=== PATIENT | female | born 1980 | race Caucasian/White ===

== ENCOUNTER 2021-10-20 21:57 | Emergency (ER) | payer OTHER, SELFPAY ==
--- NOTE | ~2021-10-20 | CT_ITS ---
EXAMINATION: CT ABDOMEN AND PELVIS WITHOUT CONTRAST CLINICAL INFORMATION: Left lower quadrant pain, question diverticulitis COMPARISON: None TECHNIQUE: Multidetector volumetric imaging was performed from the superior aspect of the liver through the pubic symphysis. Sagittal and coronal reformatted images were obtained on the technologist's workstation. This CT examination was performed using dose optimization techniques as appropriate, variously including the following: *Automated exposure control *Adjustment of mA and/or kV according to patient size (this includes techniques or standardized protocols for targeted exams where dose is matched to indication/reason for exam; i.e. extremities or head) *Use of iterative reconstruction technique DLP: 791 mGy-cm FINDINGS: LUNG BASES: The visualized lung bases are unremarkable. LIVER, GALLBLADDER, AND BILIARY TREE: The liver demonstrates hypoattenuation suspicious for steatosis. No focal hepatic lesion or biliary ductal dilatation is present. Gallbladder appears somewhat contracted. PANCREAS: Unremarkable. SPLEEN: Unremarkable. ADRENAL GLANDS: Unremarkable. KIDNEYS AND URETERS: The kidneys are normal in size, shape, and attenuation. No hydronephrosis, hydroureter, or calculi seen. No perinephric stranding. BLADDER: Minimally distended and grossly unremarkable. GASTROINTESTINAL TRACT: No evidence of bowel obstruction or significant wall thickening. The appendix is unremarkable. No free fluid or free air is seen. ABDOMINAL WALL: No significant hernia is appreciated. LYMPH NODES: Scattered mesenteric and retroperitoneal subcentimeter lymph nodes are present, without significant enlargement by size criteria. VASCULAR: Unremarkable. PELVIC VISCERA: The uterus is enlarged, suspicious for at least one prominent fibroid measuring approximately 10 cm in the central to left uterus. OSSEOUS STRUCTURES: Scattered endplate osteophytes are present in the spine. CT/CT abdomen pelvis wo con IMPRESSION: 1. Enlarged uterus, most suspicious for underlying fibroid estimated to measure approximately 10 cm. This may be more fully assessed with pelvic MRI. 2. Hepatic steatosis. 3. No evidence of diverticulitis.
[2021-10-20 23:12] VITALS: BP 182/83; PULSE 87; RESP 16; TEMP 36.7; O2SAT 96; BMI 35.7
[2021-10-21 00:25] LABS: MANUAL DIFF FLAG NO
[2021-10-21 00:26] LABS: Basophils Percent Auto 0.4 % (0-2); Eosinophils Absolute Auto 0.4 X10*3/uL (0.0-0.4); Eosinophils Percent Auto 4.5 % (0-4); Hematocrit 42.5 % (37.0-47.0); Hemoglobin 13.9 g/dl (12.0-16.0); Imm Gran Abs Auto 0.07 X10*3/uL (0.00-0.03); Imm Gran Pct Auto 0.7 % (0.0-0.4); Lymphocytes Absolute Auto 2.7 X10*3/uL (1.2-4.9); Lymphocytes Percent Auto 28.3 % (20-40); Mean Corpuscular HGB Conc 32.7 g/dl (31.0-35.0); Mean Corpuscular Volume 91.6 fL (80.0-98.0); Mean Platelet Volume 10.4 fL (9.4-12.3); Monocytes Absolute Auto 0.6 X10*3/uL (0.1-1.2); Neutrophils Absolute Auto 5.8 x10*3/uL (2.0-8.3); Neutrophils Percent Auto 60.1 % (45-73); Platelet Count 279 X10*3/uL (160-400); Red Blood Count 4.64 X10*6/uL (4.20-5.50); Red Cell Distribution Width 13.6 % (11.0-16.0); White Blood Count 9.6 X10*3/uL (4.8-10.8)
[2021-10-21 00:44] LABS: Alanine Aminotransferase 56 U/L (0-31); Albumin Level 4.6 g/dL (3.5-5.0); Alkaline Phosphatase 95 U/L (39-117); Anion Gap 14 (12-20); Aspartate Amino Transferase 30 U/L (5-31); Bilirubin Direct < 0.2 mg/dL (0.0-0.5); Bilirubin Total 0.2 mg/dL (0.0-1.0); Blood Urea Nitrogen 14 mg/dL (9-16); Calcium 9.7 mg/dL (8.4-10.2); Carbon Dioxide 23 mmol/L (22-29); Chloride 105 mmol/L (96-108); Creatinine Clr Calc Pharmacy 106.4; Estimated Glomerular Filt Rate > 60; Glucose Random 160 mg/dL (60-115); Lipase 21 U/L (8-78); Potassium 3.9 mmol/L (3.3-5.1); Sodium 138 mmol/L (135-145); Total Protein 7.3 g/dL (6.5-8.0)
--- NOTE | 2021-10-21 00:56 | ED_ITS ---
HPI - GI Bleed General Chief complaint: GI Bleed Stated complaint: rectal bleeding Time Seen by Provider: 10/21/21 00:55 Source: patient Mode of arrival: ambulatory Limitations: no limitations History of Present Illness HPI Narrative: Patient has significant abdominal complaints in the past noticed bright red blood in the stool since today evening had some discomfort since yesterday in left lower abdomen no nausea no vomiting no fever. Patient not constipated. When she moves bowel has some drops of blood in the commode and had streaks of blood on the stool no fever no chills Related Data Previous Rx's Medication Instructions Recorded hydrocortisone acetate 25 mg 25 mg [place] BID #12 ea 10/21/21 rectal suppository (Anusol-HC) Allergies Allergy/AdvReac Type Severity Reaction Status Date / Time morphine Allergy Severe Anaphylaxis Verified 10/20/21 23:12 Review of Systems Review of Systems: Yes all other systems are reviewed and are negative [facility] Social History Social History Advance Directives: No Physical Exam Vital Signs: Vital Signs: Last Vital Signs Temp 98.1 F 10/20/21 23:12 Pulse 87 10/20/21 23:12 Resp 16 10/20/21 23:12 BP 182/83 H 10/20/21 23:12 Pulse Ox 96 10/20/21 23:12 O2 Del Method 10/20/21 23:12 BMI result Body Mass Index 35.7 Appearance: Alert. Oriented X3. No acute distress. Eyes: PERRLA, No Nystagmus ENT: Pharynx normal. Oral Mucosa moist Neck: Normal inspection. Neck supple. CVS: Normal heart rate and rhythm. Pulses normal. Respiratory: No respiratory distress. Equal air entry bilateral, no wheez ing/rales/rhonchi Abdomen: Soft , mild deep tenderness left lower quadrant no rebound tenderness or guarding Bowel sounds are present, no mass palpable, no CVA tenderness rectal; no hemorrhoid felt no stool on the finger no blood Skin: Skin warm and dry. Normal skin color. Normal skin turgor. Extremities: No lower extremity edema. No calf tenderness Neuro: Oriented X 3. No motor deficit. MDM - GI Bleed MDM Narrative Medical decision making narrative: 0145 Patient with minor rectal bleed rectal exam negative no blood was seen on the finger H&H stable vital stable. Will get CT scan of the abdomen to rule out diverticulitis. Lab Data Attestation: I reviewed the patient's lab results. Result diagrams: 10/21/21 00:20 10/21/21 00:20 Labs: Lab Results 10/21/21 10/21/21 10/21/21 Range/Units 00:20 00:20 01:18 WBC 9.6 (4.8-10.8) X10*3/uL RBC 4.64 (4.20-5.50) X10*6/uL Hgb 13.9 (12.0-16.0) g/dl Hct 42.5 (37.0-47.0) % MCV 91.6 (80.0-98.0) fL MCH 30.0 (27.0-33.0) pg MCHC 32.7 (31.0-35.0) g/dl RDW 13.6 (11.0-16.0) % Plt Count 279 (160-400) X10*3/uL MPV 10.4 (9.4-12.3) fL Immature Gran % (Auto) 0.7 H (0.0-0.4) % Neut % (Auto) 60.1 (45-73) % Lymph % (Auto) 28.3 (20-40) % [place] % (Auto) 6.0 (2-11) % Eos % (Auto) 4.5 H (0-4) % Baso % (Auto) 0.4 (0-2) % Lymph # (Auto) 2.7 (1.2-4.9) X10*3/uL [place] # (Auto) 0.6 (0.1-1.2) X10*3/uL Eos # (Auto) 0.4 (0.0-0.4) X10*3/uL Baso # (Auto) 0.0 (0.0-0.2) X10*3/uL Abs Immat Gran (auto) 0.07 H (0.00-0.03) X10*3/uL Absolute Neuts (auto) 5.8 (2.0-8.3) x10*3/uL Absolute Nucleated RBC 0.000 (0.0-0.012) X10*3/uL Nucleated RBC % (auto) 0.0 (0.0-0.2) /100WBC Sodium 138 (135-145) mmol/L Potassium 3.9 (3.3-5.1) mmol/L Chloride 105 (96-108) mmol/L Carbon Dioxide 23 (22-29) mmol/L Anion Gap 14 (12-20) BUN 14 (9-16) mg/dL Creatinine 0.82 (0.5-1.4) mg/dL Estim Creat Clear Calc 106.4 Estimated GFR > 60 Random Glucose 160 H (60-115) mg/dL Calcium 9.7 (8.4-10.2) mg/dL Total Bilirubin 0.2 (0.0-1.0) mg/dL Direct Bilirubin < 0.2 (0.0-0.5) mg/dL AST 30 (5-31) U/L ALT 56 H (0-31) U/L Alkaline Phosphatase 95 (39-117) U/L Total Protein 7.3 (6.5-8.0) g/dL Albumin 4.6 (3.5-5.0) g/dL Lipase 21 (8-78) U/L Urine Color YELLOW Urine Appearance CLEAR Urine pH 6.0 (5.0-8.0) Ur Specific [place] >= 1.030 H (1.005-1.025) Urine Protein NEG (NEG-TRACE) MG/DL Urine Glucose (UA) NEG (NEG) MG/DL Urine Ketones NEG (NEG) MG/DL Urine Blood NEG (NEG) Urine Nitrite NEG (NEG) Ur Leukocyte Esterase NEG (NEG) Discharge Plan Discharge Clinical Impression: Rectal bleed Patient Disposition: Still a Patient Instructions: Rectal Bleeding (ED) Additional Instructions: Etiology of rectal bleeding is not very clear likely have internal hemorrhoids Use and is also positive for now, avoid straining or constipation Follow-up with darkroom worker for further workup including colonoscopy Report to the ER if worsening of rectal bleeding Prescriptions: New hydrocortisone acetate [Anusol-HC] 25 mg suppository 25 mg WA BID Qty: 12 0RF
[2021-10-21 01:26] LABS: Appearance Urine CLEAR; Color Urine YELLOW; Glucose Urine UA NEG (NEG); Leukocyte Esterase Urine NEG (NEG); Nitrite Urine NEG (NEG); Specific Gravity - Urine >= 1.030 (1.005-1.025); Urine Blood NEG (NEG); Urine Ketones NEG (NEG); Urine Protein NEG (NEG-TRACE)
[2021-10-21 03:00] VITALS: BP 114/61; PULSE 78; RESP 18; O2SAT 99
== END 2021-10-21 04:49 | disposition home or self-care (01) ==
PROVIDERS: Emergency Provider Internal Medicine
DX: K92.2 Gastrointestinal hemorrhage, unspecified (principal); Z79.899 Other long term (current) drug therapy
CPT/HCPCS: 36415; 74176; 80048; 80076; 81003; 83690; 85025; 99284

== ENCOUNTER 2023-01-13 20:35 | Emergency (ER) | payer OTHER, SELFPAY ==
--- NOTE | ~2023-01-13 | CT_ITS ---
EXAMINATION: CT ANGIOGRAM HEAD CT ANGIOGRAM NECK CLINICAL INFORMATION: Reason for Exam L eye blurry vision, AKERS, facial LUE numbness 1hr COMPARISON: None. TECHNIQUE: Test bolus sequences followed by intravenous administration 70 mL of Omnipaque 350. Helical imaging was performed in the axial plane from the aortic arch to the skull vertex. Delayed postcontrast imaging of the head was also performed. The data was processed at the clinical laboratory technologist's workstation for generation of MIP sequences. Angled MIPs and volume rendered reformatted images were also generated at an offline 3D workstation. Stenoses are assessed in accordance with Yang et al. Quantification of Carotid Stenosis on CT Angiography. AJR 2006. 27(1):13-19. [address] CT examination was performed using dose optimization techniques as appropriate, variously including the following: *Automated exposure control *Adjustment of mA and/or kV according to patient size (this includes techniques or standardized protocols for targeted exams where dose is matched to indication/reason for exam; i.e. extremities or head) *Use of iterative reconstruction technique DLP: 1533.76 mGy-cm FINDINGS: CT HEAD: Noncontrast head CT findings discussed separately. No pathologic intra-axial enhancement or regional oligemia. CTA HEAD: Extensive venous contamination is noted. No hemodynamically significant stenosis or occlusion in the anterior or posterior circulation. Nondominant left intradural vertebral artery terminates in PICA, a normal anatomic variant. No aneurysms and no high flow vascular malformations. Timing of the contrast bolus allows assessment of the major dural venous sinuses, which all opacify normally CTA NECK: Classic 3 vessel branching pattern of the aortic arch. Origins of the great vessels are widely patent. The common carotid arteries are widely patent. The carotid bifurcations and bilateral internal carotid arteries are normal. The right vertebral artery is dominant. Nondiagnostic assessment of the left vertebral artery origin and V1 segment. Patent right vertebral artery origin. The remainder of the vertebral arteries are widely patent throughout their extracranial cervical course. CT NECK: Impacted right posterior mandibular molar. Calcified bilateral palatine tonsilloliths. Diffuse thyromegaly can be correlated with thyroid function tests and further evaluated with thyroid ultrasound. Prominent bridging prevertebral ossification in contiguity with ventral disc osteophytes in the lower cervical spine and imaged portion of the midthoracic spine compatible with diffuse hepatic skeletal hyperostosis. Segmental ossification of the posterior longitudinal ligament at T1-T2 and T2-T3 can be correlated for referrable myelopathy. Mild cervical spondylosis. The visualized lung apices and upper mediastinum are within normal limits. CT/CT angio head neck stroke IMPRESSION: 1. No acute arterial occlusion or hemodynamically significant stenosis within the head or neck. 2. Cervicothoracic diffuse etiopathic skeletal hyperostosis and segmental ossification of the posterior longitudinal ligament at T1-T2 and T2-T3 can be correlated for referrable myelopathy. Mild cervical spondylosis. 3. Diffuse thyromegaly can be correlated with thyroid function tests and further evaluated with thyroid ultrasound.
--- NOTE | ~2023-01-13 | CT_ITS ---
EXAMINATION: CT head for stroke CLINICAL INFORMATION: Reason for Exam L hand/face numbness/AKERS, visual changes COMPARISON: MRI brain 07/09/2017 TECHNIQUE: Contiguous axial imaging was performed from the skull base to vertex without intravenous contrast. Sagittal and coronal reformatted images were obtained. This CT examination was performed using dose optimization techniques as appropriate, variously including the following: * Automated exposure control * Adjustment of mA and/or kV according to patient size (this includes techniques or standardized protocols for targeted exams where dose is matched to indication/reason for exam; i.e. extremities or head) Use of iterative reconstruction technique DLP: 722.56 mGy-cm FINDINGS: The ventricles and sulci are normal in size and configuration without significant volume loss or hydrocephalus. Cavum septum pellucidum et vergae. Minimal nonspecific burden of supratentorial white matter disease, most pronounced in the left frontal periventricular white matter is better appreciated on MRI. No territorial loss of hurst-white differentiation. No acute intracranial hemorrhage or extra-axial fluid collection. No mass lesion, significant mass effect, or herniation pattern. The orbits are grossly normal. Retention cyst largely opacifies the left maxillary sinus with a small retention cyst in the right pancreas sinus and probably secretions in the right sphenoid sinus. Minimal ethmoid air cell mucosal thickening. No mastoid effusion. Osseous structures are intact. CT/CT head for stroke IMPRESSION: No acute intracranial abnormality. Specifically, no CT evidence of acute intracranial hemorrhage, significant mass effect, hydrocephalus, or large territorial infarction.
[2023-01-13 20:38] VITALS: BP 173/99; PULSE 96; RESP 16; TEMP 36.6; O2SAT 99; BMI 35.9
--- NOTE | 2023-01-13 20:38 | ED.GENADULT ---
HPI - General Adult General Chief complaint: Stroke Stated complaint: L hand numbness, blurry vision, chest pain Time Seen by Provider: 01/13/23 20:55 Related Data Previous Rx's Medication Instructions Recorded hydrocortisone acetate 25 mg 25 mg SD BID #12 ea 10/21/21 rectal suppository (Anusol-HC) Allergies Allergy/AdvReac Type Severity Reaction Status Date / Time morphine Allergy Severe Anaphylaxis Verified 10/20/21 23:12 [facility] Social History Social History Alcohol intake: current Alcohol intake frequency: holidays/special occasions only Alcohol type: beer, wine and hard liquor Patient Tobacco Use Status: Current everyday Tobacco user Smoked in Last 30 Days: Yes Advance Directives: No Advance Directives Information Provided: Yes Patient : No Physical Exam ED Vital Signs: BMI result Body Mass Index 35.9 Course Course Course Narrative: RME: 42-year-old female with no significant past medical history presenting to the ED complaining left eye blurry vision described as staticy, headache, left-sided facial and left upper extremity numbness 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 Denies taking anticoagulation. Reports continued numbness at present. No appreciable facial droop or focal weakness in triage Charge nurse and ED Attending aware, stroke protocol initiated > patient walked directly back to CT Full HPI, ROS and PE to be performed by primary ED provider. Medications Administered Discontinued Medications Generic Name Dose Route Start Last Admin Trade Name Freq PRN Reason Stop Dose Admin Diphenhydramine HCl 25 mg 01/13/23 21:22 01/13/23 22:03 Diphenhydramine Hcl 50 Mg/Ml Vial IVPUSH 01/13/23 21:23 Not Given ONCE ONE Sodium Chloride 1,000 mls @ 999 mls/hr 01/13/23 21:30 01/13/23 23:13 Ns IV 01/13/23 22:30 Infused .Q1H1M LORAINE Infusion Iohexol 100 ml 01/13/23 21:01 01/13/23 21:01 Iohexol 350 Mg/Ml 100 Ml Infus..Btl IV 01/13/23 21:02 70 ml ONCE ONE Administration Ketorolac Tromethamine 15 mg 01/13/23 21:22 01/13/23 22:03 Ketorolac Tromethamine 15 Mg/Ml Vial IVPUSH 01/13/23 21:23 15 mg ONCE ONE Administration Metoclopramide HCl 10 mg 01/13/23 21:22 01/13/23 22:02 Metoclopramide Hcl 10 Mg/2 Ml Vial IVPUSH 01/13/23 21:23 10 mg ONCE ONE Administration Medical Decision Making Lab Data 01/13/23 21:07 01/13/23 21:07 Labs: Lab Results 01/13/23 01/13/23 Range/Units 21:07 21:11 WBC 7.3 (4.8-10.8) X10*3/uL RBC 4.48 (4.20-5.50) X10*6/uL Hgb 13.6 (12.0-16.0) g/dl Hct 40.8 (37.0-47.0) % MCV 91.1 (80.0-98.0) fL MCH 30.4 (27.0-33.0) pg MCHC 33.3 (31.0-35.0) g/dl RDW 13.2 (11.0-16.0) % Plt Count 258 (160-400) X10*3/uL MPV 10.6 (9.4-12.3) fL Immature Gran % (Auto) 0.3 (0.0-0.4) % Neut % (Auto) 52.9 (45-73) % Lymph % (Auto) 32.6 (20-40) % [place] % (Auto) 8.0 (2-11) % Eos % (Auto) 5.6 H (0-4) % Baso % (Auto) 0.6 (0-2) % Lymph # (Auto) 2.4 (1.2-4.9) X10*3/uL [place] # (Auto) 0.6 (0.1-1.2) X10*3/uL Eos # (Auto) 0.4 (0.0-0.4) X10*3/uL Baso # (Auto) 0.0 (0.0-0.2) X10*3/uL Abs Immat Gran (auto) 0.02 (0.00-0.03) X10*3/uL Absolute Neuts (auto) 3.8 (2.0-8.3) x10*3/uL Absolute Nucleated RBC 0.000 (0.0-0.012) X10*3/uL Nucleated RBC % (auto) 0.0 (0.0-0.2) /100WBC PT 11.8 (11.1-13.3) SEC INR 1.0 (0.9-1.1) APTT 33.5 (26.0-36.4) SEC Sodium 140 (135-145) mmol/L Potassium 3.9 (3.3-5.1) mmol/L Chloride 105 (96-108) mmol/L Carbon Dioxide 24 (22-29) mmol/L Anion Gap 15 (12-20) BUN 10 (9-16) mg/dL Creatinine 0.75 (0.5-1.4) mg/dL Estim Creat Clear Calc 115.4 Estimated GFR > 60 POC Glucose 96 (60-115) mg/dL Random Glucose 94 (60-115) mg/dL Calcium 8.7 D (8.4-10.2) mg/dL Magnesium 2.1 (1.6-2.6) mg/dL Total Bilirubin 0.2 (0.0-1.0) mg/dL Direct Bilirubin < 0.2 (0.0-0.5) mg/dL AST 38 H (5-31) U/L ALT 62 H (0-31) U/L Alkaline Phosphatase 83 (39-117) U/L Troponin I High Sens < 2.7 (<3.5-17.0) ng/L Total Protein 7.2 (6.5-8.0) g/dL Albumin 4.1 (3.5-5.0) g/dL Discharge Plan Discharge Clinical Impression: Migraine Patient Disposition: Home, Self-Care Instructions: Migraine Headache (ED) Prescriptions: No Action hydrocortisone acetate [Anusol-HC] 25 mg suppository 25 mg SD BID Qty: 12 0RF Referrals: Otoniel Ortez III, MD [Primary Care Provider] - 01/15/23 Interventions: ED Discharge Assessment Last Done: 01/14/23 00:18 Discharge Date/Time: 01/14/23 00:19
--- NOTE | 2023-01-13 20:40 | ECG_ITS ---
Test Reason : STROKE Blood Pressure : / mmHG Vent. Rate : 085 BPM Atrial Rate : 085 BPM P-R Int : 176 ms QRS Dur : 086 ms QT Int : 380 ms P-R-T Axes : 053 047 039 degrees QTc Int : 452 ms Normal sinus rhythm Normal ECG No previous ECGs available Referred By: Jeana Yu Electronically Signed By:OLIVERIO LOPEZ
[2023-01-13] MEDS: iohexoL 350 MG/ML 100 ML INFUS..BTL IV (21:01)
[2023-01-13 21:12] LABS: MANUAL DIFF FLAG NO
[2023-01-13 21:13] LABS: Basophils Percent Auto 0.6 % (0-2); Eosinophils Absolute Auto 0.4 X10*3/uL (0.0-0.4); Eosinophils Percent Auto 5.6 % (0-4); Hematocrit 40.8 % (37.0-47.0); Hemoglobin 13.6 g/dl (12.0-16.0); Imm Gran Abs Auto 0.02 X10*3/uL (0.00-0.03); Imm Gran Pct Auto 0.3 % (0.0-0.4); Lymphocytes Absolute Auto 2.4 X10*3/uL (1.2-4.9); Lymphocytes Percent Auto 32.6 % (20-40); Mean Corpuscular HGB Conc 33.3 g/dl (31.0-35.0); Mean Corpuscular Hemoglobin 30.4 pg (27.0-33.0); Mean Corpuscular Volume 91.1 fL (80.0-98.0); Mean Platelet Volume 10.6 fL (9.4-12.3); Monocytes Absolute Auto 0.6 X10*3/uL (0.1-1.2); Neutrophils Absolute Auto 3.8 x10*3/uL (2.0-8.3); Neutrophils Percent Auto 52.9 % (45-73); Platelet Count 258 X10*3/uL (160-400); Red Blood Count 4.48 X10*6/uL (4.20-5.50); Red Cell Distribution Width 13.2 % (11.0-16.0); White Blood Count 7.3 X10*3/uL (4.8-10.8)
--- NOTE | 2023-01-13 21:13 | ED_ITS ---
HPI - Neuro Symptoms/Deficit General Chief Complaint: Stroke Stated Complaint: L hand numbness, blurry vision, chest pain Time Seen by Provider: 01/13/23 20:55 History of Present Illness HPI Narrative: Patient is a 42-year-old female with a history of migraine headaches in the past. Patient presented today with having initially some numbness over the left hand. Follow by bright squiggly lines over the left visual field. That subsided over approximately 30 minutes then patient started having a headache. The headache is throbbing similar to previous bouts of migraine. It is worse with noise. Worse with light. Patient denies any fever chills. Denies any weakness. Did not have this type of tingling sensation in the past. No chest pain no diaphoresis. Patient from home. Related Data Previous Rx's Medication Instructions Recorded hydrocortisone acetate 25 mg 25 mg [place] BID #12 ea 10/21/21 rectal suppository (Anusol-HC) Allergies Allergy/AdvReac Type Severity Reaction Status Date / Time morphine Allergy Severe Anaphylaxis Verified 10/20/21 23:12 Review of Systems 2 Review of Systems: Positive headache Positive nausea Positive visual changes PMFSH Past Medical History Attestation statement: The following information was validated with the patient. Social History Social History Alcohol intake: current Alcohol intake frequency: holidays/special occasions only Alcohol type: beer, wine and hard liquor Patient Tobacco Use Status: Current everyday Tobacco user Smoked in Last 30 Days: Yes Advance Directives: No Advance Directives Information Provided: Yes Patient : No Physical Exam 2 Vital Signs: Vital Signs: Last Vital Signs Temp 97.9 F 01/13/23 20:38 Pulse 96 01/13/23 20:38 Resp 16 01/13/23 20:38 BP 173/99 H 01/13/23 20:38 Pulse Ox 99 01/13/23 20:38 O2 Del Method Room Air 01/13/23 20:38 BMI result Body Mass Index 35.9 Appearance: Alert. Oriented X3. No acute distress. Eyes: Pupils equal, round and reactive to light. ENT: Pharynx normal. Neck: Normal inspection. Neck supple. No lymph nodes noted. No crepitus CVS: Normal heart rate and rhythm. Pulses normal. Normal S1 and S2 Respiratory: No respiratory distress. Breath sounds normal. No Wheezing. No rales Abdomen: Soft and nontender. No rigidity. No distention. good BS x4 Skin: Skin warm and dry. Normal skin color. Normal skin turgor. Extremities: No lower extremity edema. Neurovascular intact to all extremities. No Lacerations. No Rash Neuro: Oriented X 3. No motor deficit. No sensory deficit. Moving all extermities. No slurred speech Medications Administered Discontinued Medications Generic Name Dose Route Start Last Admin Trade Name Eldonq PRN Reason Stop Dose Admin Diphenhydramine HCl 25 mg 01/13/23 21:22 01/13/23 22:03 Diphenhydramine Hcl 50 Mg/Ml Vial IVPUSH 01/13/23 21:23 Not Given ONCE ONE Sodium Chloride 1,000 mls @ 999 mls/hr 01/13/23 21:30 01/13/23 23:13 Ns IV 01/13/23 22:30 Infused .Q1H1M LORAINE Infusion Iohexol 100 ml 01/13/23 21:01 01/13/23 21:01 Iohexol 350 Mg/Ml 100 Ml Infus..Btl IV 01/13/23 21:02 70 ml ONCE ONE Administration Ketorolac Tromethamine 15 mg 01/13/23 21:22 01/13/23 22:03 Ketorolac Tromethamine 15 Mg/Ml Vial IVPUSH 01/13/23 21:23 15 mg ONCE ONE Administration Metoclopramide HCl 10 mg 01/13/23 21:22 01/13/23 22:02 Metoclopramide Hcl 10 Mg/2 Ml Vial IVPUSH 01/13/23 21:23 10 mg ONCE ONE Administration Medical Decision Making Medical Decision Making [facility] Narrative: A stroke alert was called given patient's symptom was acute. Patient's sugar is normal. There is no evidence for hypoglycemia. Positive headache. My interpretation the patient's CT scan of the head was grossly negative for any acute evidence of bleed. I reviewed the CT scan of the head with the radiologist. There is no evidence of infarct there is no evidence of bleeding. No fracture noted. Unlikely to have intracranial bleed in the setting of headache less than 5-6 hours. Patient's history consistent with having a migraine headache she had visual changes along with tingling sensation just prior to a headache that is very similar to previous bouts of migraine. Will give migraine treatment. Awaiting CTA finding will still get labs. Patient being monitored. In stable condition. There is no objective finding on patient's neuro exam. NIH stroke scale was 0. I reviewed the CTA finding with the radiologist. CTA was completely negative. There is no large vessel occlusion. Patient well appearing neurologically intact symptoms consistent with complex migraine after migraine treatment symptoms completely resolved patient is in stable condition with discharge home Differential Diagnosis Differential Diagnoses: The differential diagnosis associated with the presentation includes Intracranial bleed, stroke, migraine, mass Lab Data MDM Lab Attestation statement: I reviewed the patient's lab results. 01/13/23 21:07 01/13/23 21:07 Labs: Lab Results 01/13/23 01/13/23 Range/Units 21:07 21:11 WBC 7.3 (4.8-10.8) X10*3/uL RBC 4.48 (4.20-5.50) X10*6/uL Hgb 13.6 (12.0-16.0) g/dl Hct 40.8 (37.0-47.0) % MCV 91.1 (80.0-98.0) fL MCH 30.4 (27.0-33.0) pg MCHC 33.3 (31.0-35.0) g/dl RDW 13.2 (11.0-16.0) % Plt Count 258 (160-400) X10*3/uL MPV 10.6 (9.4-12.3) fL Immature Gran % (Auto) 0.3 (0.0-0.4) % Neut % (Auto) 52.9 (45-73) % Lymph % (Auto) 32.6 (20-40) % [place] % (Auto) 8.0 (2-11) % Eos % (Auto) 5.6 H (0-4) % Baso % (Auto) 0.6 (0-2) % Lymph # (Auto) 2.4 (1.2-4.9) X10*3/uL [place] # (Auto) 0.6 (0.1-1.2) X10*3/uL Eos # (Auto) 0.4 (0.0-0.4) X10*3/uL Baso # (Auto) 0.0 (0.0-0.2) X10*3/uL Abs Immat Gran (auto) 0.02 (0.00-0.03) X10*3/uL Absolute Neuts (auto) 3.8 (2.0-8.3) x10*3/uL Absolute Nucleated RBC 0.000 (0.0-0.012) X10*3/uL Nucleated RBC % (auto) 0.0 (0.0-0.2) /100WBC PT 11.8 (11.1-13.3) SEC INR 1.0 (0.9-1.1) APTT 33.5 (26.0-36.4) SEC Sodium 140 (135-145) mmol/L Potassium 3.9 (3.3-5.1) mmol/L Chloride 105 (96-108) mmol/L Carbon Dioxide 24 (22-29) mmol/L Anion Gap 15 (12-20) BUN 10 (9-16) mg/dL Creatinine 0.75 (0.5-1.4) mg/dL Estim Creat Clear Calc 115.4 Estimated GFR > 60 POC Glucose 96 (60-115) mg/dL Random Glucose 94 (60-115) mg/dL Calcium 8.7 D (8.4-10.2) mg/dL Magnesium 2.1 (1.6-2.6) mg/dL Total Bilirubin 0.2 (0.0-1.0) mg/dL Direct Bilirubin < 0.2 (0.0-0.5) mg/dL AST 38 H (5-31) U/L ALT 62 H (0-31) U/L Alkaline Phosphatase 83 (39-117) U/L Troponin I High Sens < 2.7 (<3.5-17.0) ng/L Total Protein 7.2 (6.5-8.0) g/dL Albumin 4.1 (3.5-5.0) g/dL Independent Interpretation I performed an independent interpretation of an: EKG (My interpretation of patient's EKG showed a sinus pattern heart rate is 80 IA QRS QTC within normal limits is no acute ST segment elevation) and CT Scan (CT scan of the head was grossly negative for any acute evidence of bleeding) Radiology Impression Discussion of test interpretation with radiology: I discussed test interpretation with the radiologist and I have reviewed the radiologist's reading. NIH Stroke Scale Internal: Initial- Upon Arrival Time: 21:20 Level of Consciousness: Alert Level of Consciousness Questions: Answers both questions correctly Level of Consciousness Commands: Performs both tasks correctly Best Gaze: Normal Visual: No visual loss Facial Palsy: Normal Motor Arm (Right): No drift Motor Arm (Left): No drift Motor Leg (Right): No drift Motor Leg (Left): No drift Limb Ataxia: Absent Sensory: Normal Best Language: No aphasia Dysarthia: Normal Extinction and Inattention: No abnormality Score: 0 Discharge Plan Discharge Clinical Impression: Migraine Patient Disposition: Home, Self-Care Instructions: Migraine Headache (ED) Prescriptions: No Action hydrocortisone acetate [Anusol-HC] 25 mg suppository 25 mg IA BID Qty: 12 0RF Referrals: Otoniel Ortez III, MD [Primary Care Provider] - 01/15/23
[2023-01-13 21:15] LABS: Glucose, Whole Blood 96 mg/dL (60-115)
[2023-01-13 21:18] LABS: Prothrombin Time 11.8 SEC (11.1-13.3)
[2023-01-13 21:20] LABS: Partial Thromboplastin Time 33.5 SEC (26.0-36.4)
--- NOTE | 2023-01-13 21:23 | PC.NURSE ---
Pt ambulated into room with a steady gait, AOx4, pt reporting 6/10 intermittent head pain that is at the top/center of my head and is decreasing in pain. Pt reports left hand/face numbness, with blurred vision in left eye that started at 1840. 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 Pt denies use of blood thinners. Pt reports feeling acid reflux in my chest, that is just sitting here. Pt denies CP, SOB, dizzy. Pt resting with no apparent distress billy, Pt aware of plan of care.
[2023-01-13 21:31] LABS: Alanine Aminotransferase 62 U/L (0-31); Albumin Level 4.1 g/dL (3.5-5.0); Alkaline Phosphatase 83 U/L (39-117); Anion Gap 15 (12-20); Aspartate Amino Transferase 38 U/L (5-31); Bilirubin Direct < 0.2 mg/dL (0.0-0.5); Bilirubin Total 0.2 mg/dL (0.0-1.0); Blood Urea Nitrogen 10 mg/dL (9-16); Calcium 8.7 mg/dL (8.4-10.2); Carbon Dioxide 24 mmol/L (22-29); Chloride 105 mmol/L (96-108); Creatinine Clr Calc Pharmacy 115.4; Estimated Glomerular Filt Rate > 60; Glucose Random 94 mg/dL (60-115); Magnesium 2.1 mg/dL (1.6-2.6); Potassium 3.9 mmol/L (3.3-5.1); Sodium 140 mmol/L (135-145); Total Protein 7.2 g/dL (6.5-8.0)
[2023-01-13 21:39] LABS: Troponin-I High Sensitivity < 2.7 ng/L (<3.5-17.0)
[2023-01-13] MEDS: Metoclopramide HCl 10 MG/2 ML VIAL IVPUSH (22:02)
[2023-01-13] MEDS: Ketorolac Tromethamine 15 MG/ML VIAL IVPUSH (22:03)
[2023-01-13] MEDS: 0.9 % Sodium Chloride 1,000 ML 999 ML IV (22:10)
[2023-01-14] VITALS: BP 126/78; PULSE 85; RESP 18; O2SAT 99
== END 2023-01-14 00:19 | disposition home or self-care (01) ==
PROVIDERS: Physician Assistant; Emergency Provider Emergency Medicine Emergency Medical Services; PCP Internal Medicine
DX: G43.909 Migraine, unspecified, not intractable, without status migrainosus (principal); H53.8 Other visual disturbances; R20.0 Anesthesia of skin; R07.89 Other chest pain; M54.2 Cervicalgia; F17.200 Nicotine dependence, unspecified, uncomplicated; Z71.6 Tobacco abuse counseling; Z79.899 Other long term (current) drug therapy
CPT/HCPCS: 36415; 70450; 70496; 70498; 80048; 80076; 82947; 83735; 84484; 85025; 85610; 85730; 93005; 96361; 96374; 96375; 99284; 99285; J1885; J2765; Q9967